=== PATIENT | female | born 1985 | race Asian ===

== ENCOUNTER → 2021-09-01 | Outpatient (CLI) | payer MEDICAID ==
[~2021-09-01] MED LIST: GADOTERATE 5 MMOL/10ML VIAL. IVP ONE
--- NOTE | 2021-09-01 15:49 | KCIC ---
EXAMINATION: Magnetic resonance imaging (MRI) of the brain and brainstem without and with contrast 1:20 PM HISTORY: Migraine with aura TECHNIQUE: Multiplanar multi-weighted MRI of the brain and brainstem was performed without and with i ntravenous contrast using the general brain protocol. Contrast information: 10 mL Gadolinium based contrast COMPARISON: None available. FINDINGS: The scalp and calvarium are normal. The superior sagittal sinus demonstrates normal venous flow. The corpus callosum is normal in shape and signal intensity. The posterior fossa is unremarkable. The p ituitary and sella are normal. The brainstem and craniocervical junction are unremarkable. There is an extra-axial cyst along the lateral right cerebellum measuring approximately 3.3 x 1.8 cm which cou ld reflect an arachnoid cyst. Diffusion weighted images reveal no hyperintensities to suggest acute cerebral infarction. The suscep tibility weighted sequences reveal no evidence of acute or chronic hemorrhage. The ventricles are nor mal in size and position without evidence of hydrocephalus. There are no areas of abnormal contrast enhancement. The paranasal sinuses are normal. The visualized portions of the mastoids are unremarkable. The orbi ts appear normal. Normal flow voids are demonstrated in the carotid arteries and basilar artery. IMPRESSION: No evidence for acute or subacute ischemia. Extra-axial cyst along the right lateral posterior fossa favors an arachnoid cyst. Electronically signed by: Neetu Mckeon MD (09/01/2021 3:46 PM) ALYSA
== END ==
LOC: KCIC MRI 12:49
PROVIDERS: ATTEND Physician Assistant
DX: G93.0 Cerebral cysts (principal); R41.3 Other amnesia; G43.009 Migraine without aura, not intractable, without status migrainosus; Z87.828 Personal history of other (healed) physical injury and trauma
CPT/HCPCS: 70553; A9575